=== PATIENT | male | born 1960 | race Caucasian/White ===

== ENCOUNTER → 2017-05-10 | Outpatient (CLI) | payer BC ==
[~2017-05-10] MED LIST: NS 100 ML IV 100 ML IV ONE
[2017-05-10 14:20] LABS: CREATININE 1.25 mg/dL (0.70-1.30)
--- NOTE | 2017-05-10 15:02 | CT ---
HISTORY: Headache, rectal carcinoma Study: CT brain with and without contrast Comparison: None Technique: Multiple axial images of the brain were obtained from the skull base to the vertex with and without administration of IV contrast. Findings: No acute intraparenchymal hemorrhage or mass can be identified. No extra-axial fluid collections ar e seen. No alteration in the attenuation of the brain parenchyma can be identified to suggest acute or subacute ischemic change. The ventricular system is symmetric and nondilated. no enhancing lesi ons are identified. No vascular abnormality or anomaly is identified. The extracranial structures ar e grossly unremarkable. the calvarium is intact. IMPRESSION: No significant intracranial abnormality identified Reported By:
== END ==
LOC: RAD 13:50
PROVIDERS: ATTEND Internal Medicine Medical Oncology
DX: C20 Malignant neoplasm of rectum (principal); R51 Headache
CPT/HCPCS: 36415; 70470; 82565; 84520; A4222